=== PATIENT | male | born 1960 | race Caucasian/White ===

== ENCOUNTER 2017-12-25 08:58 | Day surgery (SDC) | payer OTHER ==
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
[2017-12-25 09:35] LABS: PLATELET COUNT 164 10^3/uL (150-400)
[2017-12-25 09:55] LABS: INR 5.06 (0.83-1.16); PROTIME(PATIENT) 46.2 SEC (12.0-15.0)
[2017-12-25 11:49] VITALS: BP 130/97
[2017-12-25] MEDS ORDERED: BENZOCAINE UNIT DOSE SPRAY HURRICAINE MM ONE (11:50)
[2017-12-25] MEDS ORDERED: fentaNYL 100 MCG/2 ML INJ IVP ONE (11:50)
[2017-12-25] MEDS ORDERED: MIDAZOLAM 2 MG/2 ML VIAL IVP ONE (11:50)
[2017-12-25] MEDS ORDERED: ATROPINE SULFATE 1 MG/10 ML SYR IVP ONE (11:50)
[2017-12-25] MEDS ORDERED: NS 500 ML IV ONE (11:50)
--- NOTE | 2017-12-25 12:35 | GCON ---
CARDIOLOGY CONSULTATION DATE OF CONSULTATION: 12/25/2017 REFERRING PHYSICIAN: Mary Robles MD INDICATION FOR CONSULTATION: Atrial fibrillation with rapid ventricular response. HISTORY OF PRESENT ILLNESS: The patient is a pleasant 57-year-old gentleman with a known history of degenerative mitral valve disease, status post mitral valve repair with surgical Maze procedure in 10 03. He has had known history of postoperative atrial fibrillation. He also has a known history of m ild sleep apnea treated with supplemental oxygen, depression, gout, mildly dilated ascending aorta at 4.1 cm, history of thrombocytopenia. The patient continues to follow with Dr. Shawn chang at [facility]. He has been on a rate c ontrol and anticoagulation strategy with metoprolol and Coumadin. He states that he was doing well u p until last week when he states he began drinking Tequila and bourbon through the entire day. He st ates he was essentially intoxicated last Friday and for essentially [address] states la [address] he woke up in atrial fibrillation. He had been prescribed by Dr. Stephens [id number] approach amiodarone therapy. He states he has been taking 400 mg of amiodarone 3 times a day for last 7 days. He presents today in continued atrial fibrillation with rapid ventricular response wi th rates ranging from 80 to 130 beats per minute. He states that the only medication he continued to take through the course of his binge drinking last week was Coumadin. His INR today is supratherapeutic with a value of 5.06. Of note, I have been ab le to obtain his previous INRs performed at the Coumadin Clinic at [facility]. His INR on December 03, 2017, was 2.9. INR on November 06, 2017, was 1.94. The patient states that he is certain he has mis sed some dates of his Coumadin between October and today, and informs me that we should do a transesopha geal echocardiogram. He denies complaints of chest pain, chest pressure, shortness of breath, or dyspnea. No complaints o f PND, orthopnea, or lower extremity edema. PAST MEDICAL HISTORY: As stated above. MEDICATIONS: At home include Coumadin, metoprolol tartrate 50 mg p.o. b.i.d., and Lexapro 20 mg jeremy y. He has been on amiodarone 400 mg p.o. q.8 hours for the last 7 days. ALLERGIES: No known allergies. SOCIAL HISTORY: He is . He lives with his . He is currently unemployed and has recently been binge drinking alcohol. He denies any history of alcoholism. EXAM: VITAL SIGNS: Blood pressure of 130/97, heart rate of 101, irregularly irregular consistent wi th AFib, respiratory rate of 16, oxygen saturation 96% on room air, temperature 36.7. GENERAL: He i s awake, alert, oriented, appropriate, in no apparent distress. NECK: There is no evidence of JVP o r carotid bruits. LUNGS: Clear to auscultation bilaterally. CARDIAC: S1, S2. Irregularly irregul ar, consistent with AFib. He does have a 1/6 systolic murmur at the LV apex. ABDOMEN: Obese, soft, nontender, nondistended. I cannot appreciate a palpable mass or abdominal bruit. EXTREMITIES: No evidence of lower extremity edema. Distal pulses are intact. DATA: Lab work demonstrates a white blood cell count of 5.4, hemoglobin of 14.9, hematocrit of 44.1, platelet count of 164. INR of 5.06. Sodium of 141, potassium 4.4, chloride 108, bicarb 23, BUN 16, creatinine 0.9, glucose 112, calcium 9.3. Telemetry demonstrates atrial fibrillation with rapid ventricular response. IMPRESSION: 1. New onset of atrial fibrillation with rapid ventricular response. 2. Supratherapeutic INR at 5.09. 3. Recent binge of alcohol. 4. History of medical noncompliance. 5. History of mitral valve repair with surgical Maze and left atrial appendage ligation in 2010. The patient has a known history of atrial fibrillation. Patient has been on Coumadin for the last se veral years in the setting of atrial fibrillation and mitral valve disease. He is not a candidate fo r novel anticoagulants. I did explain to patient that I felt that his recent onset of atrial fibrill ation is due to his binge alcohol use. I have recommended that he avoid alcohol completely. He has been n.p.o. since last evening around 10 p.m. I have discussed in detail risks and benefits o f transesophageal echocardiogram and cardioversion. I have contacted his primary combining machine operator, Dr. Shawn Stephens, who will plan to follow up with patient next week at [facility]. PLAN: 1. Bring to [facility] for AMY-guided cardioversion. 2. Risks and benefits have been discussed. 3. We will plan to discharge patient post cardioversion if remains stable. 4. Would discontinue amiodarone and have him return to his metoprolol 50 mg p.o. b.i.d., and remain on anticoagulation with Coumadin with close followup with [facility] Coumadin Clinic. 5. Recommend complete abstinence from alcohol. /[id number]/MODL
--- NOTE | 2017-12-25 13:37 | PDANEPAE ---
ANE History of Present Illness Afib For AMY CV ANE Past Medical History - Cardiovascular History Hx Hypertension: Yes Hx Arrhythmias: Yes Hx CHF / Valvular Disease: Yes Cardiovascular History Comment: LAE - Pulmonary History Hx Oxygen in Use at Home: Yes O2 in Use at Home (L/minute): 2 Hx Sleep Apnea: No - Endocrine History Hx Diabetes: No - Chronic Pain History Chronic Pain: No ANE Review of Systems Review of Systems: - Exercise capacity Exercise capacity: >=4 METS ANE Patient History - Allergies Allergies/Adverse Reactions: No Known Allergies Allergy (Verified 12/25/17 09:03) - Home Medications Home Medications: Escitalopram Oxalate [Lexapro 10 MG] 20 mg PO DAILY 02/20/15 [Last Taken 07:30] Metoprolol Tartrate [Lopressor 25 mg (*)] 50 mg PO BID 02/20/15 [Last Taken 07:30] Amiodarone HCl 400 mg PO BID 03/08/16 [Last Taken 03/08/16 07:30] Warfarin Sodium [Coumadin 5MG (*)] 12.5 mg PO DAILY16 03/08/16 [Last Taken 03/07 20:30] - NPO status NPO Status: no food or drink >8 hours - Anes Hx Anes Hx: no prior problems - Smoking Hx Smoking Status: Never smoked - Alcohol Use Alcohol Use: Occasionally - Family Anes Hx Family Anes Hx: none ANE Labs/Vital Signs - Labs Result Diagrams: 12/25/17 09:20 12/25/17 09:20 - Vital Signs Blood Pressure: 130/97 Heart Rate: 101 Respiratory Rate: 16 O2 Sat (%): 96 Height: 180.34 cm Weight: 93.9 kg ANE Physical Exam - Airway Neck exam: FROM Mallampati Score: Class 2 Mouth exam: normal dental/mouth exam - Pulmonary Pulmonary: no respiratory distress, clear to auscultation - Cardiovascular Cardiovascular: regular rate and rhythym, no murmur, rub, or gallop - ASA Status ASA Status: II ANE Anesthesia Plan Anesthesia Plan: GA with mask Total IV Anesthesia: Yes
--- NOTE | 2017-12-25 14:09 | POSTANESTH ---
Post Anesthetic Evaluation Cardiovascular Status: Normal, Stable, Similar to Pre-Op Cond Respiratory Status: Normal, Stable, Similar to Pre-op Cond. Level of Consciousness/Mental Status: Can Participate in Eval, Alert and Oriented Pain Control: Adequate, Prn Tx Ordered Nausea/Vomiting Control: Adequate, Prn Tx Ordered Complications Possibly Related to Anesthesia: None Noted
[2017-12-25] MEDS ORDERED: PROPOFOL 200 MG/20 ML VIAL ONE (14:11)
--- NOTE | 2017-12-25 14:54 | CPEKG ---
Test Reason : OPEN Blood Pressure : / mmHG Vent. Rate : 105 BPM Atrial Rate : 300 BPM P-R Int : 065 ms QRS Dur : 110 ms QT Int : 427 ms P-R-T Axes : 000 057 042 degrees QTc Int : 565 ms Atrial fibrillation Minimal ST depression, anterolateral leads Prolonged QT interval Confirmed by Alicia Desai ([id number]) on 12/25/2017 2:53:48 PM Referred By: Confirmed By:Alicia Desai
--- NOTE | 2017-12-25 15:41 | CPR ---
DATE OF PROCEDURE: 12/25/2017 PROCEDURE PERFORMED: Transesophageal echocardiogram. INDICATION: Atrial fibrillation. SUMMARY: Mr. Rosenbaum is a pleasant 57-year-old gentleman with a known history of paroxysmal atrial fi brillation as well as mitral valve disease status post mitral valve repair and surgical maze procedur e in the past. He has had episodes of paroxysmal atrial fibrillation since his valve replacement. Char lizama presented to the ER today with a 1-week history of atrial fibrillation with rapid ventricular respo nse after binge drinking for 2 days last week. He started on amiodarone 400 mg p.o. q.8 hours for th e last week under the direction of his primary machine burrer, Dr. Alexis Stephens. He presented to e ER today in continued AFib with rates ranging between approximately 80 and 110 beats per minute. Char lizama is on Coumadin. His INR in the hospital today was approximately 5. Previous INR at Coumadin Clini c at [facility] was 2.88 on December 03, 2017. Prior INR of 1.9 on November 06, 2017. PROCEDURE: Transesophageal echocardiogram was performed because the patient stated that there are da ys where he was certain he had missed his Coumadin and stated directly I would recommend that he perf orm a transesophageal echocardiogram. Transesophageal echocardiogram demonstrated a moderate to severely enlarged left atrium with thick sp ontaneous echo contrast in small areas suggestive of small clot. As a result, attempts at cardiovers ion were not made. AMY probe was removed. I have explained to the patient in detail as well as his indication not to cardiovert. PLAN: 1. Discontinue amiodarone. 2. Hold Coumadin x1 day in the setting of INR 5, to restart Coumadin the following day. 3. Patient to return to Coumadin Clinic at [facility] on December 29, for INR check. Go al INR between 2 and 3. 4. Can return to metoprolol tartrate 25 mg p.o. b.i.d. 5. Recommend patient follow up with Dr. Stephens in the next 1-2 weeks. I have contacted Dr. Stephens and updated him on patient's condition and findings on the most recent t ransesophageal echocardiogram. The patient will be discharged home from the CV in atrial fibrillati on with rates currently in the mid 80s. /[id number]/MODL
--- NOTE | 2018-01-04 18:50 | ECHO ---
[email or web address] [address] [address] Main: [phone] Fax: Transesophageal Echocardiography Name: MARCELLO BORGES MR#: [id number] Study Date: 12/25/2017 Study Time: 01:46 PM Date of : 1960 Age: 57 year(s) Height: 180.3 cm (71 in.) Weight: 93.89 kg (207 lb.) BSA: 2.14 m2 Gender: Male Examination: AMY Indication: Pre Cardioversion Image Quality: Adequate Contrast: Requested by: Marlo Martin Heart Rate: Rhythm: BP: / Procedure Staff Seafood Clerk: Willow Hightower [facility] Reading Physician: Marlo Martin MD Requesting Provider: AMY Exam Details Conclusions: Normal size left ventricle. Mildly reduced systolic LV function. The ejection fraction is estimated to be 45-50 %. The left atrium is severely dilated. There is thick spontaneous contrast visualized in the left atrium with possible thrombus. Oversewn LALA. The right atrium is moderately dilated. Prosthetic mitral valve orifice motion is normal. Moderate MV prosthesis regurgitation. Measurements: Chambers Valvular Assessment AV/MV Valvular Assessment TV/PV Normal Normal Normal Name Value Range Name Value Range Name Value Range EF Range: 45-50 % Additional Measurements: Findings: Left Ventricle: Normal size left ventricle. Mildly reduced systolic LV function. The ejection fraction is estimated to be 45-50 %. Right Ventricle: Patient: MARCELLO BORGES Study Date: 12/25/2017 Page 1 of 2 01:46 PM Normal size right ventricle. Left Atrium: The left atrium is severely dilated. There is thick spontaneous contrast visualized in the left atrium with possible thrombus. Left Atrial Appendage: Oversewn LALA. Right Atrium: The right atrium is moderately dilated. Mitral Valve: Mitral valve repair. The mitral valve prosthesis exhibits normal function. The prosthetic mitral valve is normal. Prosthetic mitral valve orifice motion is normal. Moderate MV prosthesis regurgitation. Aortic Valve: The aortic valve is tri-leaflet. There is no significant aortic valve regurgitation. No aortic valve stenosis is present. Tricuspid Valve: The tricuspid valve is normal in appearance and function. l1n (No Signature Object) Patient: MARCELLO BORGES Study Date: 12/25/2017 Page 2 of 2 01:46 PM [id number]
== END 2017-12-25 15:50 | disposition home or self-care (01) ==
LOC: FCATH 12:28
PROVIDERS: ATTEND Internal Medicine Cardiovascular Disease
PROC: B246ZZ4 Ultrasonography of Right and Left Heart, Transesophageal (ICD-10-PCS; principal; 2017-12-25)
DX: I48.0 Paroxysmal atrial fibrillation (principal); I10 Essential (primary) hypertension; Z79.01 Long term (current) use of anticoagulants; Z99.81 Dependence on supplemental oxygen; F32.9 Major depressive disorder, single episode, unspecified; M10.9 Gout, unspecified; Z53.09 Procedure and treatment not carried out because of other contraindication
CPT/HCPCS: J0461; J2704